=== PATIENT | male | born 1970 | race Caucasian/White ===

== ENCOUNTER 2024-05-04 16:22 | Emergency (ER) | payer BC ==
[~2024-05-04] VITALS: Ht 180.3 cm; Wt 109.8 kg
[2024-05-04] MEDS ORDERED: METFORMIN HYDR500 MG PO (16:34)
[2024-05-04] MEDS ORDERED: PEPCID20 MG PO (16:34)
[2024-05-04] MEDS ORDERED: LOSARTAN POTASS50 M1 PO (16:34)
[2024-05-04] MEDS ORDERED: ZYRTEC10 M2 PO (16:35)
[2024-05-04 17:01] LABS: BASO # 0.1 10*3/uL (0.0-0.1); BASO % 0.8 % (0.0-1.0); EOS # 0.3 10*3/uL (0.0-0.4); EOS % 3.5 % (1.0-4.0); HEMATOCRIT 45.6 % (42.0-52.0); MEAN CELL VOLUME 88.2 fl (80.0-94.0); MEAN CORPUSCULAR HGB CONC 32.9 g/dl (33.0-37.0); MEAN PLATELET VOLUME 9.6 fl (9.6-12.3); MONO # 0.5 10*3/uL (0.1-1.0); MONO % 6.1 % (3.0-9.0); NEUT # 4.2 10*3/uL (2.3-7.9); NEUT % 55.3 % (47.0-73.0); PLATELET COUNT AUTOMATED 292 10*3/uL (130-400); RED BLOOD COUNT 5.17 10*6/uL (4.50-5.90); RED CELL DISTRI WIDTH 12.6 % (0-14.5); WHITE BLOOD COUNT 7.5 10*3/uL (4.8-10.8)
[2024-05-04 17:10] LABS: BILIRUBIN Negative (Negative); BLOOD 3+ (Negative); CLARITY Clear (Clear); COLOR Dark Yellow (Yellow); GLUCOSE 3+ (Negative); KETONE Trace (Negative); LEUKO ESTERASE Negative (Negative); NITRITE Negative (Negative); PH 5.5 (4.5-8.0); SPECIFIC GRAVITY >= 1.030 (1.001-1.030)
[2024-05-04 17:17] LABS: BACTERIA TRACE; FINE GRANULAR CAST 0-2; MUCOUS 1+; RBC 41-50 rbc/hpf (0-2)
[2024-05-04 17:21] LABS: ALKALINE PHOSPHATASE 62 U/L (46-116); BUN 23 mg/dl (9-23); CHLORIDE 105 mmol/L (98-107); LIPASE 33 U/L (12-53); POTASSIUM 3.8 mmol/L (3.4-5.1); SGPT/ALT 59 U/L (5-49); TOTAL PROTEIN 7.5 gm/dL (6.0-8.0)
[2024-05-04] MEDS ORDERED: FLOMAX0.4 MG PO (17:39)
[2024-05-04] MEDS ORDERED: HYDROCODONE-AC1 EAC1 PO (17:39)
== END 2024-05-04 17:54 | disposition home or self-care (01) ==
LOC: ED 16:22
PROVIDERS: Physician Assistant Medical
DX: N13.2 Hydronephrosis with renal and ureteral calculous obstruction (principal)